=== PATIENT | female | born 1990 | race Caucasian/White ===

== ENCOUNTER → 2017-09-18 | Outpatient (CLI) | payer OTHER, SELFPAY | LOC: M EKG 12:27 | DX: E11.9 Type 2 diabetes mellitus without complications (principal); R94.31 Abnormal electrocardiogram [ECG] [EKG] | CPT/HCPCS: 93005 ==

== ENCOUNTER 2017-12-07 09:08 | Outpatient (CLI) | payer OTHER ==
[2017-12-07] MEDS: BETAMETHASONE SOLUSPAN 6MG/ML INJ 5ML (J0702) IM (11:49)
[2017-12-08 07:38] LABS: BEDSIDE GLUCOSE 132 MG/DL (70-105)
[2017-12-08 16:20] LABS: BEDSIDE GLUCOSE 170 MG/DL (70-105)
== END 2017-12-07 11:59 | disposition home or self-care (01) ==
LOC: M LDO 09:08
DX: O47.03 False labor before 37 completed weeks of gestation, third trimester (principal); Z3A.34 34 weeks gestation of pregnancy; O99.213 Obesity complicating pregnancy, third trimester; O24.415 Gestational diabetes mellitus in pregnancy, controlled by oral hypoglycemic drugs; R87.613 High grade squamous intraepithelial lesion on cytologic smear of cervix (HGSIL)
CPT/HCPCS: J0702

== ENCOUNTER 2017-12-07 16:38 | Inpatient (IN) | payer OTHER ==
[2017-12-07] MEDS: LACTATED RINGER'S 1000 ML IV (19:30)
[2017-12-07] MEDS: LR 1,000 ML IV ×2 (19:30→20:54)
[2017-12-07] MEDS: metFORMIN 850 MG TAB PO (20:00)
[2017-12-07] MEDS: BUTORPHANOL 2 MG/ML INJ (J0595) IV (20:09)
[2017-12-07 20:25] LABS: HEMATOCRIT 31.2 % (36.0-47.0); HEMOGLOBIN 10.4 g/dl (12.0-16.0); MEAN CORPUSCULAR HEMOGLOBIN 29.2 pg (27.0-33.0); MEAN CORPUSCULAR HGB CONC 33.3 g/dl (32.0-36.5); MEAN CORPUSCULAR VOLUME 87.6 fl (80.0-96.0); PLATELET COUNT, AUTOMATED 195 10^3/uL (150-450); RED BLOOD COUNT 3.56 10^6/uL (4.00-5.40); RED CELL DISTRIBUTION WIDTH 13.3 % (11.5-14.5); WHITE BLOOD COUNT 15.4 10^3/uL (4.0-10.0)
[2017-12-07 21:18] LABS: APPEARANCE, URINE CLEAR (CLEAR); BACTERIA, URINE AUTO NEGATIVE (NEGATIVE); BILIRUBIN, URINE AUTO NEGATIVE (NEGATIVE); BLOOD, URINE BLOOD NEGATIVE (NEGATIVE); COLOR, URINE STRAW (YELLOW); GLUCOSE, URINE (UA) AUTO NEGATIVE (NEGATIVE); KETONE, URINE AUTO 2+ mg/dL (NEGATIVE); LEUKOCYTE ESTERASE, URINE AUTO NEGATIVE (NEGATIVE); MUCUS, URINE SMALL (NEGATIVE); NITRITE, URINE AUTO NEGATIVE (NEGATIVE); PROTEIN, URINE AUTO NEGATIVE (NEGATIVE); RBC, URINE AUTO 0 /HPF (0-3); SPECIFIC GRAVITY URINE AUTO 1.004 (1.002-1.035); SQUAMOUS EPITHELIAL CELL UR AU 0 /HPF (0-6); UROBILINOGEN, URINE AUTO 0.2 mg/dL (0.0-2.0); WBC, URINE AUTO 0 /HPF (0-3)
[2017-12-07] MEDS: CYCLOBENZAPRINE 10 MG TAB PO (22:22)
[2017-12-08] MEDS ORDERED: AMPICILLIN SOD 2 GM in APPROPRIATE DILUENT 20 ML IV (00:19)
[2017-12-08] MEDS ORDERED: FENTANYL 2MCG/ML ROPIVACAINE 0.2% IN 0.9% NACL 200ML IVBAG As Ordered (00:21)
[2017-12-08] MEDS ORDERED: oxyBUTYnin *DITROPAN XL* 5 MG TABCR PO (01:00)
[2017-12-08] MEDS ORDERED: OXYTOCIN 30 UNITS IN 0.9% NaCl 500ML IV BAG (J2590) As Ordered (01:16)
[2017-12-08 01:21] LABS: HBSAG L&D NEGATIVE (NEGATIVE)
[2017-12-08] MEDS: OXYTOCIN DRIP 30 UNITS in APPROPRIATE DILUENT 1 EA IV (02:11)
[2017-12-08] MEDS: LIDOCAINE 1% MDV 20ML VIAL INFIL (02:15)
[2017-12-08] MEDS ORDERED: DOCUSATE SODIUM 100 MG CAP PO (02:15)
[2017-12-08] MEDS ORDERED: ACETAMINOPHEN 500 MG TAB PO (02:15)
[2017-12-08] MEDS ORDERED: DIBUCAINE 1% OINTMENT 30GM TOP (02:15)
[2017-12-08] MEDS ORDERED: IBUPROFEN 800 MG TAB PO (02:15)
[2017-12-08] MEDS ORDERED: AMPICILLIN SOD 1 GM in APPROPRIATE DILUENT 10 ML IV (04:30)
[2017-12-08 05:36] LABS: BEDSIDE GLUCOSE 105 MG/DL (70-105)
[2017-12-08] MEDS: PRENATAL VITAMINS CHEWABLE TABLET PO (07:49)
[2017-12-08] MEDS ORDERED: PRENATAL VITAMINS CHEWABLE TABLET PO (09:00)
[2017-12-08] MEDS: MEASLES,MUMPS,RUBELLA VACCINE INJ (MMR-II) (90707) SC (20:15)
[2017-12-08] MEDS: RHOGAM 300 MCG (1500 IU) INJ (J2790) IM (20:15)
[2017-12-09] MEDS: PRENATAL VITAMINS CHEWABLE TABLET PO ×2 (09:00→10:11)
== END 2017-12-09 10:25 | disposition home or self-care (01) | DRG 775 ==
LOC: M LDO 16:38 → M LDI 12-08 00:15 → M OBS 12-08 03:18
PROVIDERS: Obstetrics & Gynecology
PROC: 10E0XZZ Delivery of Products of Conception, External Approach (ICD-10-PCS; principal; 2017-12-08)
PROC: 0HQ9XZZ Repair Perineum Skin, External Approach (ICD-10-PCS; 2017-12-08)
DX: O60.14X0 Preterm labor third trimester with preterm delivery third trimester, not applicable or unspecified (principal); Z37.0 Single live birth; Z3A.34 34 weeks gestation of pregnancy; E66.9 Obesity, unspecified; O99.214 Obesity complicating childbirth; Z68.35 Body mass index [BMI] 35.0-35.9, adult; O70.0 First degree perineal laceration during delivery

== ENCOUNTER → 2018-03-24 | Outpatient (CLI) | payer OTHER | LOC: M OUTALCOH 07:53 | DX: Z13.9 Encounter for screening, unspecified (principal); F10.20 Alcohol dependence, uncomplicated ==

== ENCOUNTER 2018-03-27 22:01 | Inpatient (IN) | payer OTHER ==
[2018-03-27 22:55] LABS: HEMOGLOBIN 13.2 g/dl (12.0-15.5); MEAN CORPUSCULAR HEMOGLOBIN 30.1 pg (27.0-33.0); MEAN CORPUSCULAR VOLUME 91.1 fl (80.0-96.0); PLATELET COUNT, AUTOMATED 270 10^3/uL (150-450); RED BLOOD COUNT 4.39 10^6/uL (4.00-5.40); RED CELL DISTRIBUTION WIDTH 13.1 % (11.5-14.5); WHITE BLOOD COUNT 7.3 10^3/uL (4.0-10.0)
[2018-03-27 23:17] LABS: CONTROL LINE HCG INT CTR LINE PRESENT; HCG, SERUM QUALITATIVE NEGATIVE (NEGATIVE)
[2018-03-27 23:19] LABS: AMPHETAMINES LEVEL URINE NEGATIVE (NEGATIVE); BARBITURATES URINE NEGATIVE (NEGATIVE); BENZODIAZEPINES URINE NEGATIVE (NEGATIVE); CANNABINOIDS URINE NEGATIVE (NEGATIVE); COCAINE METABOLITE URINE NEGATIVE (NEGATIVE); METHADONE URINE NEGATIVE (NEGATIVE); OPIATES URINE NEGATIVE (NEGATIVE); PHENCYCLIDINE URINE NEGATIVE (NEGATIVE)
[2018-03-27 23:27] LABS: ALBUMIN 3.8 GM/DL (3.2-5.2); ALKALINE PHOSPHATASE 92 U/L (45-117); ALT/SGPT 92 U/L (12-78); ANION GAP 12 MEQ/L (8-16); AST/SGOT 87 U/L (7-37); BILIRUBIN,DIRECT < 0.1 MG/DL (0.0-0.2); BILIRUBIN,TOTAL 0.1 MG/DL (0.2-1.0); BLOOD UREA NITROGEN 4 MG/DL (7-18); CALCIUM LEVEL 8.6 MG/DL (8.5-10.1); CARBON DIOXIDE LEVEL 24 MEQ/L (21-32); CHLORIDE LEVEL 107 MEQ/L (98-107); CREATININE FOR GFR 0.65 MG/DL (0.55-1.30); ETHYL ALCOHOL (ETHANOL) 0.288 % (0.000-0.010); GLOMERULAR FILTRATION RATE > 60.0 (>60); GLUCOSE, FASTING 168 MG/DL (70-100); POTASSIUM SERUM 4.1 MEQ/L (3.5-5.1); SALICYLATE LEVEL < 1.7 MG/DL (5.0-30.0); SODIUM LEVEL 143 MEQ/L (136-145); TOTAL PROTEIN 7.6 GM/DL (6.4-8.2)
[2018-03-27 23:31] LABS: ACETAMINOPHEN LEVEL < 2.0 UG/ML (10.0-30.0)
[2018-03-28] MEDS: ACETAMINOPHEN 325 MG TAB PO ×2 (00:36→08:15)
[2018-03-28] MEDS ORDERED: MAALOX 30 ML SUSP *UDC PO (10:45)
[2018-03-28] MEDS ORDERED: MOM 30ML SUSPENSION UDC PO (10:45)
[2018-03-28] MEDS: VENLAFAXINE **XR** 75MG CAPSULE PO (12:47)
[2018-03-28] MEDS: LORazepam 1 MG TAB PO ×2 (12:56→20:32)
[2018-03-28] MEDS: PROPRANOLOL 10 MG TAB PO ×2 (16:39→20:31)
[2018-03-28] MEDS: NALTREXONE 50 MG TAB PO (20:31)
[2018-03-28] MEDS: traZODone 50 MG TAB PO (21:23)
[2018-03-29] MEDS: VENLAFAXINE **XR** 75MG CAPSULE PO (08:26)
[2018-03-29] MEDS: PROPRANOLOL 10 MG TAB PO ×3 (08:27→20:25)
[2018-03-29] MEDS: NALTREXONE 50 MG TAB PO (20:25)
[2018-03-29] MEDS: LORazepam 1 MG TAB PO (20:25)
[2018-03-29] MEDS: traZODone 50 MG TAB PO (21:50)
[2018-03-30] MEDS: VENLAFAXINE **XR** 75MG CAPSULE PO (08:46)
[2018-03-30] MEDS: PROPRANOLOL 10 MG TAB PO ×3 (08:47→20:22)
[2018-03-30] MEDS: IBUPROFEN 400 MG TAB PO (14:19)
[2018-03-30] MEDS: LORazepam 1 MG TAB PO (20:21)
[2018-03-30] MEDS: NALTREXONE 50 MG TAB PO (20:22)
[2018-03-30] MEDS: THIAMINE 100 MG TAB PO (22:36)
[2018-03-30] MEDS: traZODone 50 MG TAB PO (22:36)
[2018-03-31 07:26] LABS: HEMOGLOBIN 12.4 g/dl (12.0-15.5)
[2018-03-31 07:49] LABS: ALBUMIN 3.6 GM/DL (3.2-5.2); ALKALINE PHOSPHATASE 87 U/L (45-117); ALT/SGPT 88 U/L (12-78); AST/SGOT 62 U/L (7-37); BILIRUBIN,DIRECT < 0.1 MG/DL (0.0-0.2); BILIRUBIN,TOTAL 0.2 MG/DL (0.2-1.0); TOTAL PROTEIN 7.2 GM/DL (6.4-8.2)
[2018-03-31] MEDS: FOLIC ACID 1 MG TAB PO (09:01)
[2018-03-31] MEDS: PROPRANOLOL 10 MG TAB PO (09:01)
[2018-03-31] MEDS: VENLAFAXINE **XR** 75MG CAPSULE PO (09:01)
[2018-03-31] MEDS: THIAMINE 100 MG TAB PO (09:02)
[2018-03-31] MEDS: LORazepam 1 MG TAB PO (09:03)
[2018-03-31 10:35] LABS: ESTIMATED AVERAGE GLUCOSE 108 MG/DL (60-110); HEMOGLOBIN A1c 5.4 %
== END 2018-03-31 11:00 | disposition home or self-care (01) | DRG 898 ==
LOC: M ED 22:01 → M PSY 03-30 04:08 → M ED INP 03-28 10:40 → M PSY 03-28 11:25
DX: F19.94 Other psychoactive substance use, unspecified with psychoactive substance-induced mood disorder (principal); F10.10 Alcohol abuse, uncomplicated; F41.1 Generalized anxiety disorder; F43.10 Post-traumatic stress disorder, unspecified; Z79.899 Other long term (current) drug therapy

== ENCOUNTER 2018-04-01 16:25 | Outpatient (RCR) | payer OTHER | END 2018-04-15 | LOC: M OUTALCOH 04-03 14:00 | DX: F10.20 Alcohol dependence, uncomplicated (principal) ==

== ENCOUNTER 2018-05-20 11:08 | Outpatient (RCR) | payer OTHER | END 2018-06-15 | LOC: M OUTALCOH 11:08 | DX: F10.20 Alcohol dependence, uncomplicated (principal) ==

== ENCOUNTER → 2018-05-31 | Outpatient (REF) | payer OTHER | LOC: M SFHCLERA 11:05 | DX: J02.9 Acute pharyngitis, unspecified (principal) ==

== ENCOUNTER 2018-06-16 14:50 | Outpatient (RCR) | payer OTHER | END 2018-07-16 | LOC: M OUTALCOH 06-18 08:45 | DX: F10.20 Alcohol dependence, uncomplicated (principal) ==

== ENCOUNTER 2018-09-01 15:25 | Outpatient (RCR) | payer OTHER ==
[~2018-09-01 15:25] MED LIST: ACAM0.05 PO; EFFE150C2 PO; MAPA500T2 PO; METF850T4 PO; MOTR200T44 PO; NALT50TA4 PO; PRENTAB9 PO; PROP10TAB PO; TRAZO50TA PO; TYLE500T78 PO; VENL75CA47 PO; XANA0.5T PO
== END 2018-09-15 ==
LOC: M OUTALCOH 15:25
PROVIDERS: ATTEND Psychiatry & Neurology Psychiatry
DX: F10.20 Alcohol dependence, uncomplicated (principal)

== ENCOUNTER → 2018-10-03 | Outpatient (REF) | payer OTHER | LOC: M LABDRAW1 17:09 → M LAB REF 17:09 | PROVIDERS: ATTEND Psychiatry & Neurology Psychiatry | DX: F10.20 Alcohol dependence, uncomplicated (principal) ==

== ENCOUNTER → 2018-10-16 | Outpatient (RCR) | payer OTHER | LOC: M OUTALCOH 10-03 13:55 | PROVIDERS: ATTEND Psychiatry & Neurology Psychiatry | DX: F10.20 Alcohol dependence, uncomplicated (principal) ==

== ENCOUNTER 2018-11-04 09:00 | Outpatient (RCR) | payer OTHER | END 2018-11-13 | LOC: M OUTALCOH 09:00 | PROVIDERS: ATTEND Psychiatry & Neurology Psychiatry | DX: F10.20 Alcohol dependence, uncomplicated (principal) ==

== ENCOUNTER 2018-12-24 01:33 | Inpatient (IN) | payer OTHER ==
[2018-12-24] VITALS (15 sets, daily range): BP systolic 119–185; BP diastolic 69–106
[~2018-12-24] VITALS: Ht 160 cm; Wt 97.4 kg
[~2018-12-24 01:33] MED LIST changes: +PROP10TA55 PO; -PROP10TAB PO
[2018-12-24] MEDS ORDERED: BUSP-29 PO (01:45)
[2018-12-24] MEDS ORDERED: BUPR15TA PO (01:45)
[2018-12-24] MEDS ORDERED: OXYTOCIN 30 UNITS IN 0.9% NaCl 500ML IV BAG (J2590) As Ordered ONE (02:17)
[2018-12-24 02:46] LABS: HEMATOCRIT 32.5 % (36.0-47.0); HEMOGLOBIN 10.7 g/dl (12.0-15.5); MEAN CORPUSCULAR HGB CONC 32.9 g/dl (32.0-36.5); MEAN CORPUSCULAR VOLUME 88.1 fl (80.0-96.0); PLATELET COUNT, AUTOMATED 272 10^3/uL (150-450); RED BLOOD COUNT 3.69 10^6/uL (4.00-5.40); WHITE BLOOD COUNT 13.7 10^3/uL (4.0-10.0)
[2018-12-24] MEDS ORDERED: OXYTOCIN DRIP 30 UNITS in APPROPRIATE DILUENT 1 EA IV SCH (02:59)
--- NOTE | 2018-12-24 02:59 | HPEPDOC ---
Obstetrical History & Physical General Date of Admission Dec 24, 2018 at 02:16 History of Present Illness 28 yo presents to L&D @ 38 wks by 7+6 k US on with c/o CTXs. Denies DFM, LOF, and vaginal bleeding. Chief Complaint: Contractions, term Information Provided By: Patient Age: 28 : 3 Term: 0 Pre-term: 1 Abortions: 1 Livin Care Care: Good Care Number of Visits: 14 Dating Final EDC: Jan 07, 2019 Final EDC for Daily Update: Jan 07, 2019 LMP: Mar 25, 2018 1st Trimester Date: May 27, 2018 Weeks + Days: 7.6 Estimated Date of Confinement: Jan 07, 2019 EGA at Admission: 38.0 Antepartum Course Diagnos(e)s 1. Class B DM-metformin 2. hx PTB @ 35 wks 3. short interval pregnancies 4, BMI-34 5. ETOH-in-pt rehab during 6. HSIL- PAP/colpo Height (inches): 63 Pre- weight (lbs.): 195 Admission Weight (lbs.): 198 Change in Weight (lbs.): 3 Past Medical History Past Obstetrical History : Past Obstetrical History: Multigravida Date of Delivery: Dec 08, 2017 Gestation: 35 Type of Delivery: Spontaneous Vaginal Del. 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 ( @ 8 wks) Past Medical History Medical History BMI-34 ETOH abuse exercise induced asthma Seasonal allergies Class B DM depression anxiety Surgical History: Appendectomy, Diagnostic laparoscopy, [place] teeth, Other (uterine suspension; R wrist ORIF) Family History Significant Family History: No pertinent family hx Social History Marital Status: Family situation: Spouse/partner home Psychosocial History: Anxiety, Depression * Smoker: non-smoker Alcohol: heavy Drugs: denies Abuse Violence Screening Have you been hit/kicked/slapp: No Have you been sexually assault: No Imunizations Tdap status: current ([id number]) Influenza Status: current ([id number]) Allergies Coded Allergies: No Known Allergies (Unverified , 12/07/17) Medications Scheduled Bupropion HCl (Wellbutrin Sr) 150 Mg Tab.sr.12h, 2 TAB PO BID Miscellaneous Medications Buspirone HCl (Buspirone HCl) 10 Mg Tablet, 10 MG PO Physical Examination Physical Examination Deferred d/t current labor status Laboratory Data CBC/BMP [id number] hour GTT-101/180/147/104 Pertinent Laboratoy Data Blood Type: A+ RBC Antibody Screen: Negative HIV: Negative Hepatitis B: Negative Hepatitis C: Unknown Rapid Plasma Reagin: Nonreactive Rubella: Immune Varicella: Immune Chlamydia/Gonorrhea: Negative Group B Streptococcus: Unknown Glucose Tolerance Test: 184 Anatomy Ultrasound Ultrasound Date: Aug 19, 2018 Placenta Location: Posterior Normal Anatomy: Yes Placenta Previa: No Estimated Weight (grams): 381 Steroid Therapy Steroid Therapy: No Vaginal Examination Dilation: 8 cm Effacement: 90% Station: 0 Cervical Consistency: Soft Cervical Position: Anterior Presentation: Cephalic presentation Position: Vertex (occiput) Assessment Heart Rate (FHR): 125 Variability: Moderate Accelerations: None Decelerations: Early Tocometer Contractions: Yes Frequency: regular, other (Q 2-3 min) Duration: less than 90 seconds Strength: palpated as strong Multi-drug resistant Organism: No history of MDRO Assessment/Plan Assessment 28 yo @ 38 wks in active labor with CAT I FHR tracing. GBS unkn Plan Admit and orient. 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 Diet: clear liquids GBS unkn Labs and IV per unit protocol. Anticipate [normal spontaneous delivery C-S as appropriate. KYAW CHEUNG CNM Dec 24, 2018 02:59
[2018-12-24] MEDS ORDERED: ACETAMINOPHEN 500 MG TAB PO PRN (03:00)
[2018-12-24] MEDS ORDERED: MOM 30ML SUSPENSION UDC PO PRN (03:00)
[2018-12-24] MEDS ORDERED: DOCUSATE SODIUM 100 MG CAP PO PRN (03:00)
[2018-12-24] MEDS ORDERED: ONDANSETRON 4MG/2ML VIAL (J2405) IV PRN (03:00)
[2018-12-24] MEDS ORDERED: DIBUCAINE 1% OINTMENT 30GM TOP PRN (03:00)
[2018-12-24] MEDS ORDERED: PROMETHAZINE 25 MG TAB PO PRN (03:00)
--- NOTE | 2018-12-24 03:05 | DNPDOC ---
[facility] Delivery Note Delivery Note DATE OF DELIVERY: [id number] @ 0233 PREDELIVERY DIAGNOSIS: 38+0weeks' gestation and labor. POST DELIVERY DIAGNOSIS: Delivered. PROCEDURE: CARBON SETTER: Kyaw Cheung CNM ANESTHESIA: none ESTIMATED BLOOD LOSS: 200 mL. FINDINGS: 6 pound 8 ounce, girl , Score 8/9, nuchal cord-none DELIVERY SUMMARY: Patient is a 28 yo G3 now P0111 who was admitted to labor and delivery for active labor @ 38+0. Progressed to c/c/+2 with strong desire to push. Delivery was via of a viable female to a clean field; presented OA with no nuchal cord noted. Anterior shoulder(left) delivered with mild downward traction, then the posterior shoulder delivered with mild upward traction; remainder of corpus delivered spontaneously. Infant placed [id number] on mother's chest. Delayed cord clamping x 3 min, then cord clamped x 2 and cut by FOB. Child had vigorous cry. Placenta delivered intact with 3 vessel cord approx 5-10 min later. Fundal massage applied, pitocin bolus initiated. No lacerations noted. Mother and infant bonding well and stable in delivery room when this provider left. Anticipate routine PP course EBL-200 ml -8/9 KYAW CHEUNG CNM Dec 24, 2018 03:05
[2018-12-24] MEDS ORDERED: miSOPROStol 200 MCG TAB (S0191) PR ONE (03:45)
[2018-12-24] MEDS ORDERED: METF500T13 PO (03:50)
[2018-12-24 05:05] LABS: ALT/SGPT 13 U/L (12-78); BILIRUBIN,TOTAL 0.1 MG/DL (0.2-1.0); CREATININE FOR GFR 0.49 MG/DL (0.55-1.30); GLOMERULAR FILTRATION RATE > 60.0 (>60); LDH LACTATE DEHYDROGENASE 198 U/L (84-246); URIC ACID 4.6 MG/DL (2.6-6.0)
[2018-12-24 05:23] LABS: BLOOD UREA NITROGEN 6 MG/DL (7-18); CALCIUM LEVEL 8.4 MG/DL (8.5-10.1); CARBON DIOXIDE LEVEL 22 MEQ/L (21-32); CHLORIDE LEVEL 107 MEQ/L (98-107); GLUCOSE, FASTING 102 MG/DL (70-100); POTASSIUM SERUM 4.2 MEQ/L (3.5-5.1); SODIUM LEVEL 136 MEQ/L (136-145)
[2018-12-24] MEDS: PRENATAL VITAMINS CHEWABLE TABLET PO SCH (08:10)
[2018-12-24] MEDS: IBUPROFEN 800 MG TAB PO PRN ×2 (08:10→20:51)
[2018-12-25 05:14] VITALS: BP 116/62
[2018-12-25] MEDS: IBUPROFEN 800 MG TAB PO PRN (06:26)
--- NOTE | 2018-12-25 06:47 | IPNPDOC ---
Text Note Date of Service The patient was seen on 12/25/18. NOTE PPD1 States feeling well, pain controlled with prescribed meds. Baby bonding and feeding well. No heavy VB. Lochia slowing. Ambulatory. Tolerating PO without issues. Voiding spont. No CP/LP/SOB. VSSAF NAD A&O LE no C/C/E Ut at U-2, firm a/p: Doing well. Cont routine care. D/C today. Sessions VS,Yuli, I+O VSYuli, I+O Vital Signs Date Time Temp Pulse Resp B/P (MAP) Pulse Ox O2 Delivery O2 Flow Rate FiO2 12/25/18 05:14 98.0 79 18 116/62 (80) 12/24/18 06:00 98 SESSIONS,JUSTINE Mckeon MD Dec 25, 2018 06:47
--- NOTE | 2018-12-25 06:57 | DS.PDOC ---
Discharge Summary General Date of Admission Dec 24, 2018 at 02:16 Date of Discharge [id number] Discharge Summary ADMITTING DIAGNOSES: Active labor DISCHARGE DIAGNOSES: Same, HOSPITAL COURSE: Admitted and delivery uncomplicated, . course uncomplicated. DISCHARGE MEDICATIONS: Motrin, Lanolin, Tylenol DISCHARGE INSTRUCTIONS: Nothing in the vagina for 6 weeks. F/U in OBGYN clinic in 6-8 weeks. Sessions Vital Signs/I&Os Vital Signs Date Time Temp Pulse Resp B/P (MAP) Pulse Ox O2 Delivery O2 Flow Rate FiO2 12/25/18 05:14 98.0 79 18 116/62 (80) 12/24/18 06:00 98 Laboratory Data Labs 24H Laboratory Tests 2 12/24/18 10:25: Bedside Glucose (Misc Panel) 68L 12/24/18 10:27: Bedside Glucose (Misc Panel) 71 12/24/18 14:09: Bedside Glucose (Misc Panel) 96 12/24/18 19:52: Bedside Glucose (Misc Panel) 132H 12/25/18 06:23: Bedside Glucose (Misc Panel) 65L FSBS Laboratory Tests Test 12/24/18 10:25 12/24/18 10:27 12/24/18 14:09 12/24/18 19:52 Range/Units Bedside Glucose (Misc Panel) 68 71 96 132 70-105 MG/DL Test 12/25/18 06:23 Range/Units Bedside Glucose (Misc Panel) 65 70-105 MG/DL Discharge Medications Scheduled Bupropion HCl (Wellbutrin Sr) 150 Mg Tab.sr.12h, 2 TAB PO BID, (Reported) Metformin HCl (Metformin HCl) 500 Mg Tablet, 500 MG PO BID, (Reported) Miscellaneous Medications Buspirone HCl (Buspirone HCl) 10 Mg Tablet, 10 MG PO, (Reported) Allergies Coded Allergies: No Known Allergies (Unverified , 12/07/17) SESSIONS,JUSTINE Mckeon MD Dec 25, 2018 06:57
[2018-12-25] MEDS ORDERED: PRENTAB9 PO (08:23)
[2018-12-25] MEDS ORDERED: MAPA500T2 PO (08:24)
[2018-12-25] MEDS ORDERED: IBUP-1114 PO (08:24)
[2018-12-25] MEDS ORDERED: COLA100C5 PO (08:26)
[2018-12-25] MEDS ORDERED: MOM30SS PO (08:27)
[2018-12-25] MEDS: PRENATAL VITAMINS CHEWABLE TABLET PO SCH (10:37)
== END 2018-12-25 13:00 | disposition home or self-care (01) | DRG 807 ==
LOC: M LDO 01:33 → M LDI 02:16 → M OBS 06:12
PROVIDERS: ADMIT Midwife; ATTEND Midwife
PROC: 10E0XZZ Delivery of Products of Conception, External Approach (ICD-10-PCS; principal; 2018-12-24)
DX: O24.425 Gestational diabetes mellitus in childbirth, controlled by oral hypoglycemic drugs (principal); Z37.0 Single live birth; Z3A.38 38 weeks gestation of pregnancy; F10.10 Alcohol abuse, uncomplicated; O99.314 Alcohol use complicating childbirth; F32.9 Major depressive disorder, single episode, unspecified; F41.9 Anxiety disorder, unspecified; O99.344 Other mental disorders complicating childbirth